=== PATIENT | male | born 1950 | race African-American/Black ===

== ENCOUNTER 2022-07-31 08:55 | Emergency (ER) | payer OTHER ==
[~2022-07-31] VITALS: Ht 182.9 cm; Wt 75.0 kg
[2022-07-31] MEDS ORDERED: MORPHINE SULFATE 4 MG/ML CPJ (NOT FOR IM USE) IV STA (09:12)
[2022-07-31] MEDS ORDERED: KETOROLAC 30MG/ML VIAL IV STA (09:12)
[2022-07-31] MEDS ORDERED: DEXAMETHASONE 4MG/ML 1ML VIAL IV ONE (09:15)
[2022-07-31 11:09] LABS: CHLORIDE 103 mEq/L (98-107)
[2022-07-31 11:10] VITALS: BP 158/85
[2022-07-31] MEDS ORDERED: T3 PO (12:26)
[2022-07-31] MEDS ORDERED: IBUP-2028 PO (12:26)
== END 2022-07-31 12:55 | disposition home or self-care (01) ==
LOC: ER 08:55
DX: M54.9 Dorsalgia, unspecified (principal); G89.29 Other chronic pain; I10 Essential (primary) hypertension; F17.210 Nicotine dependence, cigarettes, uncomplicated
CPT/HCPCS: 36415; 80053; 96374; 96375; 99284; J1100; J1885; J2270